=== PATIENT | female | born 1970 | race Caucasian/White ===

== ENCOUNTER 2020-02-15 13:16 | Emergency (ER) | payer OTHER ==
--- NOTE | 2020-02-15 13:37 | TELE ---
HPI Do you have fever,cough or shortness of breath?: Yes - General Reason For Visit: COVID TESTING Time Seen by Provider: 02/15/20 13:34 History Source: Patient Exam Limitations: Clinical Condition - History of Present Illness Timing/Duration: unsure Associated Symptoms: reports: malaise. denies: cough, fever/chills, loss of appetite, nausea/vomiting, shortness of breath, syncope 02/15/20 13:34 Patient with no significant past medical history presents to [facility] urgent care for COVID testing due to feeling some malaise and nasal congestion and wants to make sure she does not have coughing. Patient also reported having some intermittent loose stools. 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 Denies fever, shortness of breath, recent travel or known sick positive COVID contact. Denies any other symptoms Review of Systems - Review of Systems Able to Perform ROS?: Yes Constitutional: Yes: Malaise. No: Chills, Fever HEENTM: Yes: Symptoms Reported, See HPI, Nose Congestion. No: Eye Pain, Blurred Vision, Tearing, Recent change in vision, Double Vision, Cataracts, Ear Pain, Ocular Prothesis, Ear Discharge, Nose Pain, Tinnitus, Nose Bleeding, Hearing Loss, Throat Pain, Throat Swelling, Mouth Pain, Dental Problems, Difficulty Swallowing, Mouth Swelling, Other Respiratory: No: Symptoms reported, See HPI, Cough, Orthopnea, Shortness of Breath, SOB with Exertion, SOB at Rest, Stridor, Wheezing, Productive cough, Hemoptysis, Other Cardiac (ROS): No: Symptoms Reported, See HPI, Chest Pain, Edema, Irregular Heart Rate, Lightheadedness, Palpitations, Syncope, Chest Tightness, Other ABD/GI: Yes: Symptoms Reported, See HPI, Diarrhea (intermittent). No: Nausea, Vomiting Integumentary: No: Symptoms Reported Neurological: No: Symptoms reported, Headache, Dizziness All Other Systems: Reviewed and Negative *Physical Exam - Physical Exam General Appearance: Yes: Nourished, Appropriately Dressed. No: Apparent Distress HEENT: positive: Normal ENT Inspection Respiratory/Chest: negative: Respiratory Distress, Accessory Muscle Use Musculoskeletal: positive: Normal Inspection Extremity: positive: Normal Inspection, Normal Range of Motion Integumentary: positive: Normal Color Neurologic: positive: Fully Oriented, Alert, Normal Mood/Affect, Normal Response, Motor Strength 10/07 - Medical Decision Making 02/15/20 13:35 Patient with no significant past medical history presents to [facility] urgent care for COVID testing due to feeling some malaise and nasal congestion and wants to make sure she does not have coughing. Patient also reported having some intermittent loose stools. 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 Denies fever, shortness of breath, recent travel or known sick positive COVID contact. Denies any other symptoms Clinical exam unremarkable with patient in no acute respiratory distress and patient afebrile. Discussed with patient self quarantine instructions. COVID tests ordered as per patient request and patient will go to [facility] today for testing. Patient stable for discharge Discharge Diagnosis at time of Disposition: Encounter by telehealth for suspected COVID-19 - Referrals Follow-up Referral(s): Hira Tijerina [Primary Care Provider] - - Patient Instructions Discharge Instructions: [facility] Instructions, [facility] COVID-19 Isolation Protocol - Discharge Disposition: HOME Condition at time of Disposition: Stable
== END 2020-02-15 13:37 | disposition home or self-care (01) ==
LOC: JVIRT 13:16
DX: Z11.59 Encounter for screening for other viral diseases (principal)
CPT/HCPCS: C9803; Q3014-GT; U0003